=== PATIENT | male | born 1965 | race Caucasian/White ===

== ENCOUNTER 2022-03-08 09:07 | Emergency (ER) | payer OTHER ==
[~2022-03-08] VITALS: Ht 167.6 cm; Wt 68.0 kg
[2022-03-08] MEDS ORDERED: HYDROCODON-ACE1 EA10 PO (17:12)
--- NOTE | 2022-03-09 12:13 | EKG ---
[facility] [address] [facility] [place] [address] Signed Normal sinus rhythm ST \T\ T wave abnormality, consider inferior ischemia Abnormal ECG No previous ECGs available Confirmed by NAM ZHENG MD ([id number] on 03/09/2022 12:13:37 PM Electronically Signed By: NAM ZHENG MD 03/09/22 1213 PATIENT NAME: AYSE ISABEL RADHA Electrocardiogram DATE OF : 65 PHYSICIAN: NAM ZHENG MD REPORT #: [id number] REPORT IS CONFIDENTIAL AND NOT TO BE RELEASED WITHOUT AUTHORIZATION
== END 2022-03-08 17:33 | disposition home or self-care (01) ==
LOC: ED 09:07
DX: S80.12XA Contusion of left lower leg, initial encounter (principal); S90.32XA Contusion of left foot, initial encounter; S30.1XXA Contusion of abdominal wall, initial encounter; D64.9 Anemia, unspecified; K59.00 Constipation, unspecified; R53.1 Weakness; R63.4 Abnormal weight loss; W19.XXXA Unspecified fall, initial encounter
CPT/HCPCS: 36415; 71275; 74174; 80053; 83540; 83550; 83735; 84484; 85025; 93005; 93010; 93971; 99285-25; Q9967